=== PATIENT | female | born 1970 | race Caucasian/White ===

== ENCOUNTER 2019-05-29 05:44 | Emergency (ER) | payer BC ==
--- NOTE | 2019-05-29 06:36 | Emergency Department Record ---
History of Present Illness - General Chief Complaint: Back Pain/Injury Stated Complaint: BACK PAIN Time Seen by Provider: 05/29/19 06:16 Source: Patient Mode of Arrival: Ambulatory Limitations: No limitations - History of Present Illness Initial Comments: pt is c/o significant pain in her r leg. it goes from her thigh all the way down her leg. it was a 9/10 but she took some motrin and now it is 5/10. she has never had this pain before. it started yesterday while she was driving. 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 she denies back pain. she did get an adjustment yesterday from her chiropractor but not for back pain, it eas for jaw pain. however, the chiropractor did crack her back. she has no numbness or problems with bowel or bladder. she dxd herself after exploring google with sciatica. MD Complaint: Other Onset/Timin -: Days(s) Similar Symptoms Previously: No Radiation: Buttocks, Right leg Severity scale (1-10): 9 Quality: Aching, Sharp Consistency: Constant, Getting worse Improves With: Medication Worsens With: None Context: Other Associated Symptoms: Denies other symptoms Treatments Prior to Arrival: NSAIDS - Related Data Allergies Allergy/AdvReac Type Severity Reaction Status Date / Time Penicillins Allergy Unknown PT UNSURE Verified 05/29/19 06:04 OF REACTION Travel Screening - Travel/Exposure Within Last 30 Days Have you traveled within the last 30 days?: No - Travel/Exposure Within Last Year Have you traveled outside the [place] in the last year?: No - Additonal Travel Details Have you been exposed to anyone with a communicable illness?: No - Travel Symptoms Symptom Screening: None Review of Systems Reviewed: No additional complaints except as noted below Constitutional: Reports: As per HPI. Denies: Chills, Fever, Malaise, Night sweats, Weakness, Weight change Eyes: Reports: As per HPI. Denies: Eye discharge, Eye pain, Photophobia, Vision change ENT: Reports: As per HPI. Denies: Congestion, Dental pain, Ear pain, Epistaxis, Hearing loss, Throat pain Respiratory: Reports: As per HPI. Denies: Cough, Dyspnea, Hemoptysis, Stridor, Wheezes Cardiovascular: Reports: As per HPI. Denies: Arrhythmia, Chest pain, Dyspnea on exertion, Edema, Murmurs, Orthopnea, Palpitations, Paroxysmal nocturnal dyspnea, Rheumatic Fever, Syncope Endocrine: Reports: As per HPI. Denies: Fatigue, Heat or cold intolerance, Polydipsia, Polyuria Gastrointestinal: Reports: As per HPI. Denies: Abdominal pain, Constipation, Diarrhea, Hematemesis, Hematochezia, Melena, Nausea, Vomiting Genitourinary: Reports: As per HPI. Denies: Abnormal menses, Discharge, Dyspareunia, Dysuria, Frequency, Hematuria, Incontinence, Retention, Urgency Musculoskeletal: Reports: As per HPI, Other. Denies: Arthralgia, Back pain, Gout, Joint swelling, Myalgia, Neck pain Skin: Reports: As per HPI. Denies: Bruising, Change in color, Change in hair/nails, Lesions, Pruritus, Rash Neurological: Reports: As per HPI. Denies: Abnormal gait, Confusion, Headache, Numbness, Paresthesias, Seizure, Tingling, Tremors, Vertigo, Weakness Psychiatric: Reports: As per HPI. Denies: Anxiety, Auditory hallucinations, Depression, Homicidal thoughts, Suicidal thoughts, Visual hallucinations Hematological/Lymphatic: Reports: As per HPI. Denies: Anemia, Blood Clots, Easy bleeding, Easy bruising, Swollen glands Past Medical History - SOCIAL HISTORY Smoking Status: Former smoker Alcohol Use: None Drug Use: None - RESPIRATORY Hx Respiratory Disorders: No - CARDIOVASCULAR Hx Cardio Disorders: No - ENDOCRINE Hx Thyroid Disease: Yes - PSYCH Hx Depression: Yes Family Medical History Any Significant Family History?: No Hx Cancer: Father Hx Diabetes: Mother, Brother/Sister Hx Heart Disease: Mother Physical Exam - General General Appearance: Alert, Oriented x3, Cooperative, Mild distress - Head Head exam: Normal inspection - Eye Eye exam: Normal appearance, PERRL, EOMI Pupils: Normal accommodation - ENT ENT exam: Normal exam, Mucous membranes moist, Normal external ear exam, Normal orophraynx Ear exam: Normal external inspection. negative: External canal tenderness Nasal Exam: Normal inspection. negative: Discharge, Sinus tenderness Mouth exam: Normal external inspection, Tongue normal Teeth exam: Normal inspection. negative: Dental caries Throat exam: Normal inspection. negative: Tonsillar erythema, Tonsillar exudate - Neck Neck exam: Normal inspection, Full ROM. negative: Tenderness - Respiratory Respiratory exam: Normal lung sounds bilaterally. negative: Respiratory distress - Cardiovascular Cardiovascular Exam: Regular rate, Normal rhythm, Normal heart sounds - GI/Abdominal GI/Abdominal exam: Soft, Normal bowel sounds. negative: Tenderness - Rectal Rectal exam: Deferred - exam: Deferred - Extremities Extremities exam: Calf tenderness, Full ROM, Normal capillary refill, Tenderness, Other (thigh tenderness) - Back Back exam: Reports: Normal inspection, Full ROM, Other (no back tenderness, negative straight leg, pt able to sit up without difficulty). Denies: Muscle spasm, Rash noted, Tenderness - Neurological Neurological exam: Alert, CN II-XII intact, Normal gait, Oriented X3 - Psychiatric Psychiatric exam: Normal affect, Normal mood - Skin Skin exam: Dry, Intact, Normal color, Warm Course Vital Signs 05/29/19 05:49 Temperature 98.2 F Pulse Rate [ 79 Pulse Ox Probe] Respiratory 24 Rate Blood Pressure 143/88 [Left Arm] Pulse Ox 100 - Reevaluation(s) Reevaluation #1: 05/29/19 07:19 care being assumed by dr tamez Medical Decision Making - Lab Data Result diagrams: 05/29/19 06:45 05/29/19 06:45 Disposition Forms: Patient Portal Access Quality - Quality Measures Quality Measures: N/A - Blood Pressure Screening Does Patient Have Any of the Following: No Blood Pressure Classification: Pre-Hypertensive BP Reading Systolic Measurement: 143 Diastolic Measurement: 88 Screening for High Blood Pressure: < Pre-Hypertensive BP, F/U Documented > [G8950] Pre-Hypertensive Follow-up Interventions: Follow-up with rescreen every year.
[2019-05-29 06:54] LABS: ABSOLUTE NEUTROPHIL COUNT 4.65; BASO % 0.5 % (0-6); EOS % 2.6 % (0-6); GRAN % 75.8 % (47-80); HEMATOCRIT 34.5 % (35.0-47.0); HEMOGLOBIN 10.7 gm/dl (11.6-16.0); LYMPH % 13.9 % (16-45); MEAN CELL VOLUME 95.8 fl (81-97); MEAN CORPUSCULAR HEMOGLOBIN 29.7 pg (27-33); MEAN PLATELET VOLUME 10.2 fl (7.4-10.4); MONO % 7.2 % (0-9); PLATELET COUNT 223 K/uL (130-400); RED CELL DISTRIBUTION WIDTH 13.4 % (11.5-14.5); WHITE BLOOD COUNT W/O DIFF 6.1 K/uL (4.2-12.2)
[2019-05-29 07:07] LABS: BLOOD UREA NITROGEN 9 mg/dL (6-20); CREATININE 0.7 mg/dL (0.5-0.9); EST GLOMERULAR FILTRATION RATE > 60 mL/min
[2019-05-29 07:10] LABS: GLUCOSE,RANDOM 111 mg/dL (74-109)
--- NOTE | 2019-05-29 07:35 | ULTRASOUND REPORT ---
EXAMINATION: Right Lower Extremity Venous Duplex Doppler Ultrasound EXAM DATE: 05/29/2019 7:30 AM TECHNIQUE: Real-time B-mode imaging with and without compression was used to evaluate the right lowe r extremity for deep venous thrombosis (DVT). Duplex Doppler with color and spectral Doppler was use d. INDICATION: Right leg pain COMPARISON: None FINDINGS: Right Common Femoral Vein: No DVT. Right Femoral Vein: No DVT. Right Popliteal Vein: No DVT. Right Proximal Deep Femoral Vein: No DVT. Right Posterior Tibial Veins: No DVT. Right Peroneal Veins: No DVT. Right proximal Great Saphenous Vein: No thrombus. Duplex Doppler: Spectral Doppler waveforms show normal respiratory phasicity in the common femoral vein. Additional Findings: None. IMPRESSION: There is no deep venous thrombosis in the visualized deep veins of the right lower extremity. Dictated by: London Lobo MD on 05/29/2019 7:32 AM. .
--- NOTE | 2019-05-29 07:45 | Emergency Department Record ---
History of Present Illness - General Chief Complaint: Back Pain/Injury Stated Complaint: BACK PAIN Time Seen by Provider: 05/29/19 06:16 Source: Patient Limitations: No limitations - History of Present Illness Onset/Timin -: Days(s) Similar Symptoms Previously: No Radiation: Buttocks, Right leg Severity scale (1-10): 9 Quality: Aching, Sharp Consistency: Constant, Getting worse Improves With: Medication Worsens With: None Context: Other Associated Symptoms: Denies other symptoms Treatments Prior to Arrival: NSAIDS - Related Data Previous Rx's Medication Instructions Recorded Cyclobenzaprine HCl [Flexeril] 10 mg PO TID #14 tablet 05/29/19 Allergies Allergy/AdvReac Type Severity Reaction Status Date / Time Penicillins Allergy Unknown PT UNSURE Verified 05/29/19 06:04 OF REACTION Travel Screening - Travel/Exposure Within Last 30 Days Have you traveled within the last 30 days?: No - Travel/Exposure Within Last Year Have you traveled outside the [place] in the last year?: No - Additonal Travel Details Have you been exposed to anyone with a communicable illness?: No - Travel Symptoms Symptom Screening: None Review of Systems Constitutional: Reports: As per HPI. Denies: Chills, Fever, Malaise, Night sweats, Weakness, Weight change Eyes: Reports: As per HPI. Denies: Eye discharge, Eye pain, Photophobia, Vision change ENT: Reports: As per HPI. Denies: Congestion, Dental pain, Ear pain, Epistaxis, Hearing loss, Throat pain Respiratory: Reports: As per HPI. Denies: Cough, Dyspnea, Hemoptysis, Stridor, Wheezes Cardiovascular: Reports: As per HPI. Denies: Arrhythmia, Chest pain, Dyspnea on exertion, Edema, Murmurs, Orthopnea, Palpitations, Paroxysmal nocturnal dyspnea, Rheumatic Fever, Syncope Endocrine: Reports: As per HPI. Denies: Fatigue, Heat or cold intolerance, Polydipsia, Polyuria Gastrointestinal: Reports: As per HPI. Denies: Abdominal pain, Constipation, Diarrhea, Hematemesis, Hematochezia, Melena, Nausea, Vomiting Genitourinary: Reports: As per HPI. Denies: Abnormal menses, Discharge, Dyspareunia, Dysuria, Frequency, Hematuria, Incontinence, Retention, Urgency Musculoskeletal: Reports: As per HPI, Other. Denies: Arthralgia, Back pain, Gout, Joint swelling, Myalgia, Neck pain Skin: Reports: As per HPI. Denies: Bruising, Change in color, Change in hair/nails, Lesions, Pruritus, Rash Neurological: Reports: As per HPI. Denies: Abnormal gait, Confusion, Headache, Numbness, Paresthesias, Seizure, Tingling, Tremors, Vertigo, Weakness Psychiatric: Reports: As per HPI. Denies: Anxiety, Auditory hallucinations, Depression, Homicidal thoughts, Suicidal thoughts, Visual hallucinations Hematological/Lymphatic: Reports: As per HPI. Denies: Anemia, Blood Clots, Easy bleeding, Easy bruising, Swollen glands Past Medical History - SOCIAL HISTORY Smoking Status: Former smoker Alcohol Use: None Drug Use: None - RESPIRATORY Hx Respiratory Disorders: No - CARDIOVASCULAR Hx Cardio Disorders: No - ENDOCRINE Hx Thyroid Disease: Yes - PSYCH Hx Depression: Yes Family Medical History Any Significant Family History?: No Hx Cancer: Father Hx Diabetes: Mother, Brother/Sister Hx Heart Disease: Mother Physical Exam - General Limitations: No limitations Course Vital Signs 05/29/19 05:49 Temperature 98.2 F Pulse Rate [ 79 Pulse Ox Probe] Respiratory 24 Rate Blood Pressure 143/88 [Left Arm] Pulse Ox 100 Medical Decision Making - Lab Data Result diagrams: 05/29/19 06:45 05/29/19 06:45 Lab Results 05/29/19 05/29/19 05/29/19 Range/Units 06:45 06:45 06:45 WBC 6.1 (4.2-12.2) K/uL RBC 3.60 L (3.80-5.40) M/uL Hgb 10.7 L (11.6-16.0) gm/dl Hct 34.5 L (35.0-47.0) % MCV 95.8 (81-97) fl MCH 29.7 (27-33) pg MCHC 31.0 L (32-36) g/dl RDW 13.4 (11.5-14.5) % Plt Count 223 (130-400) K/uL MPV 10.2 (7.4-10.4) fl Gran % 75.8 (47-80) % Lymphocytes % 13.9 L (16-45) % Monocytes % 7.2 (0-9) % Eosinophils % 2.6 (0-6) % Basophils % 0.5 (0-6) % Absolute Neutrophils 4.65 D-Dimer 0.20 (0-0.59) mg/L FEU Sodium 138 (136-145) mmol/L Potassium 3.8 (3.4-4.5) mmol/L Chloride 105 (98-107) mmol/L Carbon Dioxide 23.0 (22-29) mmol/L Anion Gap 10.0 (7-16) BUN 9 (6-20) mg/dL Creatinine 0.7 (0.5-0.9) mg/dL Estimated GFR > 60 mL/min Random Glucose 111 H (74-109) mg/dL Calcium 8.6 (8.6-10.0) mg/dL Disposition Disposition: Discharge Clinical Impression: Leg pain Qualifiers: Laterality: right Qualified Code(s): M79.604 - Pain in right leg Radiculopathy Qualifiers: Spinal region: lumbosacral Qualified Code(s): M54.17 - Radiculopathy, lumbosacral region Disposition: Home, Self-Care Condition: (1) Good Instructions: Lumbar Radiculopathy (ED) Additional Instructions: follow up with family doctor. return sooner if worse. if symptoms persist have mri. take motrin for pain with food Prescriptions: Cyclobenzaprine HCl [Flexeril] 10 mg PO TID #14 tablet Forms: Patient Portal Access Quality - Quality Measures Quality Measures: N/A - Blood Pressure Screening Does Patient Have Any of the Following: No Blood Pressure Classification: Pre-Hypertensive BP Reading Systolic Measurement: 143 Diastolic Measurement: 88 Screening for High Blood Pressure: < Pre-Hypertensive BP, F/U Documented > [G8950] Pre-Hypertensive Follow-up Interventions: Follow-up with rescreen every year.
== END 2019-05-29 07:57 | disposition home or self-care (01) ==
LOC: ER 05:44
DX: M54.17 Radiculopathy, lumbosacral region (principal); M79.604 Pain in right leg
CPT/HCPCS: 80048; 85025; 85379; 99284